=== PATIENT | male | born 1990 | race Hispanic/Latino ===

== ENCOUNTER 2017-09-11 18:17 | Emergency (ER) | payer SELFPAY ==
[2017-09-11] MEDS ORDERED: Proparacaine 0.5% Opth 15 ML BOT ONE (18:24)
[2017-09-11] MEDS ORDERED: Fluorescein Opthalmic Strip ONE (18:24)
== END 2017-09-11 18:44 | disposition home or self-care (01) ==
LOC: SCSER 18:17
DX: S05.02XA Injury of conjunctiva and corneal abrasion without foreign body, left eye, initial encounter (principal); X58.XXXA Exposure to other specified factors, initial encounter
CPT/HCPCS: 99283

== ENCOUNTER 2017-09-16 01:11 | Emergency (ER) | payer SELFPAY ==
[2017-09-16] MEDS ORDERED: Proparacaine 0.5% Opth 15 ML BOT ONE (01:23)
[2017-09-16] MEDS ORDERED: Fluorescein Opthalmic Strip ONE (01:23)
== END 2017-09-16 01:57 | disposition home or self-care (01) ==
LOC: SCSER 01:11
DX: H16.002 Unspecified corneal ulcer, left eye (principal); Z79.899 Other long term (current) drug therapy
CPT/HCPCS: 99283